=== PATIENT | female | born 1975 | race Caucasian/White ===

== ENCOUNTER → 2016-11-02 | Day surgery (SDC) | payer OTHER ==
[2016-11-02] VITALS (8 sets, daily range): BP systolic 95–105; BP diastolic 58–67
[~2016-11-02] VITALS: Ht 166.4 cm; Wt 70.3 kg
[~2016-11-02] MED LIST: DiphenhydrAMINE 50mg/ml Inj IVP PRN; LR 1000ml 1,000 ML IVLG SCH; Labetalol 5mg/ml 20ml vial IV PRN; Lidocaine 1% MPF 10mg/ml 5ml ONE; PRILOSEC OTC20 MG ORAL; Propofol 10mg/ml 20ml IV ONE; VALACYCLOVIR500 MG ORAL
--- NOTE | 2016-11-02 06:54 | Anethesia Preoperative Eval ---
Anesthesia Pre-op PMH/ROS General Date of Evaluation: Nov 02, 2016 Anesthesiologist: Winston ASA Score: ASA 2 Mallampati Score Class I : Soft palate, uvula, fauces, pillars visible Class II: Soft palate, uvula, fauces visible Class III: Soft palate, base of uvula visible Class IV: Only hard plate visible Mallampati Classification: Class II Surgeon: Ifrah Diagnosis: screening Surgical Procedure: EGD and colonoscopy Anesthesia History: none Family History: no anesthesia problems Allergies: Coded Allergies: No Known Allergies (Unverified , 11/02/16) Medications: see eMAR Past Medical History Cardiovascular: Denies: CAD, HTN, [place], arrhythmia, other, valve dz Pulmonary: Denies: COPD, GRETTA, asthma, other Gastrointestinal/Genitourinary: Denies: CRI, ESRD, GERD, other Neurologic/Psychiatric: Reports: depression/anxiety, Denies: CVA, TIA, dementia, other Endocrine: Denies: DM, hypothyroidism, other, steroids HEENT: Denies: RAMONA (L), RAMONA (R), cataract (L), cataract (R), glaucoma, other Hematology/Immune: Denies: DVT, anemia, bleeding disorder, other Musculoskeletal/Integumentary: Denies: DDD, DJD, OA, RA, edema, other PSxH Narrative: Gastric bypass, lap jessica, multiple plastics procedures Anesthesia Pre-op Phys. Exam Physician Exam see chart Constitutional: NAD Cardiovascular: RRR Respiratory: CTA Airway Exam Mallampati Score: Class II Anesthesia Pre-op A/P Labs see chart Studies Pre-op Studies: EKG - sr Risk Assessment & Plan Assessment: ASA II Plan: MAC Status Change Before Surgery: No Pre-Antibiotics Drug: N/A CLARISSA ABDULLAHI M.D. Nov 02, 2016 06:54
--- NOTE | 2016-11-02 07:44 | Immediate Post-Op Evaluation ---
Immediate Post-Op Evalulation Immediate Post-Op Evalulation Procedure: EGd and colonoscopy Date of Evaluation: Nov 02, 2016 Time of Evaluation: 09:05 IV Fluids: 500 Blood Products: 0 Estimated Blood Loss: 0 Urinary Output: 0 Blood Pressure Systolic: 97 Blood Pressure Diastolic: 59 Pulse Rate: 65 Respiratory Rate: 16 O2 Sat by Pulse Oximetry: 100 Temperature (Fahrenheit): 97.5 Pain Score (1-10): 0 Nausea: No Vomiting: No Complications 0 Patient Status: awake, reacts, patent, none Hydration Status: adequate Drug: N/A CLARISSA ABDULLAHI M.D. Nov 02, 2016 07:44
--- NOTE | 2016-11-02 07:45 | 48 Hour Post Anesthesia Eval ---
Post Anesthesia Evaluation Procedure: EGd and colonoscopy Date of Evaluation: Nov 02, 2016 Blood Pressure Systolic: 107 0: 81 Pulse Rate: 58 Respiratory Rate: 16 Temperature (Fahrenheit): 97.5 O2 Sat by Pulse Oximetry: 99 Airway: patent Nausea: No Vomiting: No Pain Intensity: 0 Hydration Status: adequate Cardiopulmonary Status: at baseline Mental Status/LOC: patient returned to baseline Post-Anesthesia Complications: 0 Follow-up care needed: ready to discharge CLARISSA ABDULLAHI M.D. Nov 02, 2016 07:45
--- NOTE | 2016-11-02 08:23 | Short Stay Surgery H&P ---
History of Present Illness History of Present Illness Chief Complaint see H&P HPI Hesham Bingham is a 41 year old female who was admitted on for Anemia Patient History Allergies: Coded Allergies: No Known Allergies (Unverified , 11/02/16) PAST MEDICAL HISTORY: Past Surgeries: Social History: Physical Exam Labs Laboratory Tests Test 11/02/16 07:35 Urine HCG, Qualitative Negative Plan Attestation Are the patient's medical conditions optimized for surgery? KISHAN MATHIS Nov 02, 2016 08:23
--- NOTE | 2016-11-02 08:24 | Pre-Procedure Note/Attestation ---
Pre-Procedure Note/Attestation Complete Prior to Procedure Planned Procedure: not applicable Procedure Narrative: egd/colon Indications for Procedure Pre-Operative Diagnosis: anemia Attestation I attest that I discussed the nature of the procedure; its benefits; risks and complications; and alternatives (and the risks and benefits of such alternatives ), prior to the procedure, with the patient (or the patient's legal sales representative [place]). I attest that, if there was a reasonable possibility of needing a blood transfusion, the patient (or the patient's legal sales representative [place]) was given the [facility] standardized written summary, pursuant to the [place] Blood Safety Act ([place] Health and Safety Code # 1645, as amended). I attest that I re-evaluated the patient just prior to the surgery and that there has been no change in the patient's H&P, except as documented below: KISHAN MATHIS Nov 02, 2016 08:24
--- NOTE | 2016-11-02 19:58 | Operative Note - Dictated ---
GASTROENTEROLOGY PROCEDURE REPORT: DATE OF PROCEDURE: 11/02/2016 PROCEDURE: Upper gastroendoscopy with enteroscopy and biopsy as well as colonoscopy. SURGEON: Mee Rg M.D. ANESTHESIA: Please see the separate anesthesiologist notes for details. PRE-ENDOSCOPIC DIAGNOSIS: Anemia. POST-ENDOSCOPIC DIAGNOSES: 1. Status post Debbie-en-Y gastric bypass surgery with a long blind candy-cane loop of bowel. 2. A 5 to 6 cm gastric pouch. 3. Approximately 13 mm gastrojejunal anastomosis. 4. No evidence of ulcers or erosions in the upper gastrointestinal tract. Status post random biopsies of the gastric pouch. 5. Normal colonoscopy. DESCRIPTION OF PROCEDURE: The procedure, its risks, indications, alternatives, and possible complications including, but not limited to, bleeding, infection, perforation, , and anesthesia complications were explained to the patient. An informed consent was obtained. The patient was then sedated in the left lateral decubitus position. A diagnostic upper endoscope was introduced through the oropharynx and advanced to the small bowel. Endoscope was then gradually withdrawn. The mucosa examined carefully. Once the endoscope was removed, the rectal exam was done. The colonoscope was introduced in the rectum and advanced to the cecum without difficulty. The cecum was identified by the appearance of the ileocecal valve. The colonoscope was then gradually withdrawn and mucosa examined carefully. The colonoscope was removed. The patient was sent to recovery in good condition. All findings . RECOMMENDATIONS: 1. Follow up biopsy results. 2. Zantac 300 mg p.o. nightly for control symptoms of dyspepsia and reflux . 3. Outpatient followup. 4. Check and treat Helicobacter pylori if positive. Thank you for asking me to participate in care of this patient Mee Rg M.D. DR: eRji JOB#: [id number] CC: Vanessa Paul M.D.; Fax#: [phone] [facility]
--- NOTE | 2016-11-05 20:13 | Endoscopy Procedure Note ---
Endoscopy Procedure Note Indication for Procedure: anemia Procedures Performed: EGD, colonoscopy Operative Findings/Diagnosis: POWER, normal colon Pt Tolerated Procedure Well: Yes Estimated Blood Loss: none Anesthesiologist: see report Anesthesia: moderate sedation Medication Given: see anesthesia record Implant(s) used?: No 50 yrs or older w/o bx or poly: Not Applicable 10yrs. F/U not recommended: Not Applicable If not recommended, why?: KISHAN MATHIS Nov 05, 2016 20:13
--- NOTE | 2016-11-05 20:14 | Brief Operative Note ---
Immediate Post Operative Note Operative Note Chief Complaint: anemia Pre-op Diagnosis: anemia Procedure: EGD, Colon Surgeon: mable Anesthesiologist: present Specimen: yes Complications: none Condition: stable Estimated Blood Loss: none Drains: none Implant(s) used?: No KISHAN MATHIS Nov 05, 2016 20:14
--- NOTE | 2016-11-18 13:18 | Operative Note - Dictated ---
DATE OF OPERATION: 11/09/2016 ADDENDUM TO THE PROCEDURE ALREADY BEEN DICTATED DESCRIPTION OF PROCEDURE: The procedure, its risks, indications, alternatives, and possible complications including, but not limited to, bleeding, infection, perforation, , and anesthesia complications were explained to the patient. An informed consent was obtained. The patient was then sedated in the left lateral decubitus position. A diagnostic upper endoscope was introduced through the oropharynx and advanced to the small bowel. Endoscope was then gradually withdrawn. The mucosa examined carefully. Once the endoscope was removed, the rectal exam was done. The colonoscope was introduced in the rectum and advanced to the cecum without difficulty. The cecum was identified by the appearance of the ileocecal valve. The colonoscope was then gradually withdrawn and mucosa examined carefully. The colonoscope was removed. The patient was sent to recovery in good condition. All findings . Mee Rg M.D. DR: Ulises JOB#: [id number] CC:
== END | disposition home or self-care (01) ==
LOC: GAS 07:22
DX: D50.9 Iron deficiency anemia, unspecified (principal); K29.50 Unspecified chronic gastritis without bleeding; K21.9 Gastro-esophageal reflux disease without esophagitis; N93.8 Other specified abnormal uterine and vaginal bleeding; N92.0 Excessive and frequent menstruation with regular cycle; F32.9 Major depressive disorder, single episode, unspecified; F41.9 Anxiety disorder, unspecified; Z87.11 Personal history of peptic ulcer disease; Z98.84 Bariatric surgery status; Z90.49 Acquired absence of other specified parts of digestive tract
CPT/HCPCS: 43239; 45378; 81025; J2704; 94003; 94150